=== PATIENT | female | born 1995 | race Caucasian/White ===

== ENCOUNTER 2016-12-14 22:44 | Emergency (ER) | payer OTHER ==
[2016-12-15 02:14] VITALS: BP 141/91
[2016-12-15] MEDS ORDERED: BENADRYL IM ONE (02:24)
[2016-12-15] MEDS ORDERED: COMPAZINE IM ONE (02:24)
[2016-12-15] MEDS ORDERED: PHENERGAN IM ONE (02:26)
--- NOTE | 2016-12-15 02:30 | PROVIDER DOCUMENTATION ---
HPI-Headache - General Chief Complaint: Headache Stated Complaint: V/N,HEADACHE Time Seen by Provider: 12/15/16 02:20 Source: patient Allergies/Adverse Reactions: Patient Allergies Allergy/AdvReac Type Severity Reaction Status Date / Time benztropine mesylate * Allergy Severe ANAPHYLAXIS Verified 11/24/16 22:50 [From Cogentin] ketorolac tromethamine * Allergy Severe ANAPHYLAXIS Verified 11/24/16 22:50 [From Toradol] nalbuphine HCl * Allergy Severe SWELLING Verified 11/24/16 22:50 [From Nubain] iodine Allergy ANAPHYLAXIS Verified 11/24/16 22:50 meperidine HCl * Allergy Unknown Verified 11/24/16 22:50 [From Demerol] aripiprazole [From Abilify] AdvReac Unknown Verified 11/24/16 22:50 Home Medications: Home Medication List Medication Instructions Recorded Confirmed Last Taken Type Fentanyl 25 Microgm/Hr Patch 1 patch TD Q3DAYS 07/15/16 12/14/16 08/14/16 History [Duragesic 25 Microgm/Hr Patch] Butalb/Acetaminophen/Caffeine 1 each PO 2-4XDAY PRN PRN #30 07/19/16 12/14/16 Unknown Rx [Esgic 50-325-40 mg Tablet] tablet Ondansetron HCl [Zofran] 1 - 2 tab PO Q6H PRN PRN #15 tablet 07/19/16 12/14/16 08/16/16 Rx Promethazine [Phenergan] 25 mg KS Q6H PRN PRN #10 supp 10/27/16 12/14/16 Unknown Rx Alprazolam [Xanax] 1 mg PO BID 11/24/16 12/14/16 Unknown History - History of Present Illness-Headache Nature of Presenting Problem: 21 Y/O F presents to ED with Headache. Pt is a frequent visitor to the ED with c /o of photophobia and vomiting. Pt states that the onset was around 4hr but she Headache Location: reports: frontal Quality of Pain: reports: aching Severity: reports: moderate, severe Onset/Duration: reports: 4-6 hours ago Timing: reports: still present Headache Context: reports: nothing Headache History: reports: history of migraines Any recent trauma/injury?: reports: none Headache severity at the maximum: severe Preceding Symptoms: reports: visual disturbances Headache Exacerbated by:: reports: light Associated Symptoms: reports: headache, vomiting. denies: fever/chills Review of Systems - Adult - REVIEW OF SYSTEMS - ADULT Constitutional: denies: chills, fever Eyes: reports: no symptoms reported Ears, Nose, Mouth & Throat: reports: no symptoms reported Cardiovascular: reports: no symptoms reported Respiratory: reports: no symptoms reported Gastrointestinal: reports: vomiting Genitourinary: reports: no symptoms reported Musculoskeletal: reports: no symptoms reported Integumentary: reports: no symptoms reported Neurological: reports: headache/migraines Psychiatric: reports: no symptoms reported Endocrine: reports: no symptoms reported Hematologic/Lymphatic: reports: no symptoms reported Allergic/Immunologic: reports: no symptoms reported All Other Systems: Reviewed and Negative Past History - Adult - PAST MEDICAL HISTORY-ADULT Review of Records: reports: Old Records Reviewed, Nursing Assessment Review, Medications Reviewed, Social history reviewed & non-contributory. Major Childhood Illnesses: reports: denies history Cardiovascular: denies: cardiac disease, CHF Respiratory: denies: asthma, lung disease Gastrointestinal: reports: Crohn's Obstetrical/Gynecological: reports: denies history Genitourinary: reports: kidney stones Musculoskeletal: denies: arthritis, orthopedic injury Neurological: reports: Seizures/Epilepsy Psychiatric: reports: bipolar Endocrine/Immune: reports: hypoglycemia Other Conditions: reports: other cancer (colon) - PRIOR SURGERIES/PROCEDURES Surgical/Procedure History: reports: appendectomy, cholecystectomy, other ( colon resection) - PRIOR HOSPITALIZATIONS Prior Hospitalizations: reports: none - IMMUNIZATION STATUS Childhood Immunizations: UTD Flu Vaccine: See Nurse Assessment - FAMILY HISTORY Family History: reviewed, not pertinent - SOCIAL HISTORY Smoking: cigarettes, less than 1 pack/day Alcohol Use Frequency: occasionally Living Situation: family Physical Exam- Neurological - Physical Exam-Neuro Initial Vital Signs Reviewed: Yes General Appearance: alert, mild distress. negative: appears well Eye Exam: bilateral eye: normal inspection, PERRL, EOMI, photophobia HENMT: normocephalic/atraumatic, moist mucous membranes, normal ENT inspection, TMs normal, pharynx normal Head Injury: no evidence of injury Neck: non-tender, full range of motion, supple, normal inspection Respiratory: chest non-tender, lungs clear, normal breath sounds Cardiovascular: normal peripheral pulses, regular rate, rhythm Abdominal Exam: normal bowel sounds, non tender, soft Lymphatic: no adenopathy Extremity: normal range of motion, non-tender radiology physician Exam: normal hearing, normal speech, PERRL Coordination/Gait: normal finger to nose Motor/Sensory: no motor deficit, no sensory deficit, no pronator drift Neurologic: radiology physician II-XII nml as tested Integumentary: normal color, normal turgor, warm/dry Psych/Mental Status: normal mood/affect, normal thought content, normal thought process, oriented x 3 - Glascow Coma Scale Best Eye Response: (4) open spontaneously Best Verbal Response: (5) oriented Best Motor Response: (6) obeys commands Total Glascow Score: 15 Progress - PLAN OF CARE/RESULTS Progress/Plan/Lab Results: Orders Category Date Time Status Diphenhydramine [Benadryl] Med 12/15/16 02:24 Discontinued 25 mg IM NOW ONE Prochlorperazine [Compazine] Med 12/15/16 02:24 Discontinued 10 mg IM NOW ONE Promethazine [Phenergan] Med 12/15/16 02:26 Discontinued 25 mg IM NOW ONE Vital Signs - 24 hr 12/14/16 12/15/16 22:56 02:13 Temperature 98.5 F 98.2 F Pulse Rate 86 76 Respiratory 18 20 Rate Blood Pressure 143/99 141/91 O2 Sat by Pulse 100 96 Oximetry Departure - Departure Time of Disposition Order: 02:29 DIAGNOSIS: Headache Qualifiers: Headache type: unspecified Headache chronicity pattern: unspecified pattern Intractability: not intractable Qualified Code(s): R51 - Headache Disposition: HOME 01 Certified Medical Emergency: Emergent Condition: Stable Additional Instructions: ED Follow Up Instructions: You have been treated by a care provider in the Emergency Department. These instructions are being provided to you so you can have an understanding of how to care for yourself upon discharge. Upon discharge from the Emergency Department, you are responsible for making arrangements for follow-up care by a physician of your choice. Take all prescribed medications as directed. Return to the Emergency Department immediately for any new or worsening symptoms. You may call the Physician Referral phone number at [phone] to obtain a list of Physicians who are taking new patients. Referrals: Johan Caamra MD [Primary Care Provider] - Instructions: Migraine Headache, [id number] Attestation - Scribe Verification/Attestation Scribe:: Noni Kidd Acting as Scribe for:: Dieter Andujar Scribe documention review:: This chart was documented by a scribe and accurately reflects the service the provider performed and the decisions made by the provider.
== END 2016-12-15 02:49 | disposition home or self-care (01) ==
LOC: P.ED 22:44
DX: R51 Headache (principal); H53.149 Visual discomfort, unspecified; R11.10 Vomiting, unspecified; Z79.899 Other long term (current) drug therapy; Z87.442 Personal history of urinary calculi; Z85.038 Personal history of other malignant neoplasm of large intestine
CPT/HCPCS: J0780; J1200; J2550

== ENCOUNTER 2019-06-09 08:50 | Inpatient (IN) ==
[2019-06-09] MEDS ORDERED: TYLENOL PO PRN (10:11)
[2019-06-09] MEDS ORDERED: VENTOLIN HFA INH PRN (10:17)
--- NOTE | 2019-06-09 10:35 | Diag Imaging Result Doc PS360 ---
CHEST-2 VIEWS - 06/09/2019 INDICATION: GERD,FTT COMPARISON: 09/17/2018 FINDINGS: The lungs are normally expanded and clear. Heart size and mediastinal contours are normal. No pneumothorax or pleural effusion. There are cholecystectomy clips. IMPRESSION: Negative exam. Electronically signed by Chuy Lee 06/09/2019 10:33 AM
--- NOTE | 2019-06-09 10:59 | EKG Report ---
Test Performed on : 06/09/2019 10:52:07 AM Test Reason : FTT,Diarrhea,chron's dz. Blood Pressure : / mmHG Vent. Rate : 081 BPM Atrial Rate : 081 BPM P-R Int : 158 ms QRS Dur : 068 ms QT Int : 370 ms P-R-T Axes : 087 093 001 degrees QTc Int : 429 ms Normal sinus rhythm. Rightward axis Septal infarct , age undetermined ST & T wave abnormality, consider inferior ischemia ST & T wave abnormality, consider anterior ischemia Abnormal ECG When compared with ECG of 06-NOV-2017 22:07, T wave inversion now evident in Inferior leads T wave inversion now evident in Anterior leads Confirmed by Dion VICKERS, Gege Ray ([id number]) on 06/15/2019 8:33:52 AM
--- NOTE | 2019-06-09 11:18 | HISTORY AND PHYSICAL ---
PRIMARY CARE PHYSICIAN: Dr. Johan Camara. GASTROENTEROLOGY: Dr. Jax Posada. GENERAL SURGERY: Dr. Chin Long. CHIEF COMPLAINT: Direct admit from home at the request of Dr. Long. She had a PICC line for TPN and the PICC line was pulled about a month ago. She has Crohn disease and failure to thrive and is being admitted for evaluation for a feeding tube. HISTORY OF PRESENTING ILLNESS: This is a 23-year-old female who presents to [facility] as a direct admit from Home at the request of General Surgery, Dr. Long. She has a history of Crohn disease and had a PICC line for home TPN therapy and had a possible infection according to the patient, and they pulled her PICC line about a month ago. She has failure to thrive, currently weighs 78 pounds and 4 ounces, so she is being admitted for evaluation of a possible feeding tube at this time for further evaluation and treatment. PAST MEDICAL HISTORY: Crohn disease, PTSD, manic depression, GERD, multiple personality disorder, and diabetes type 2. PAST SURGICAL HISTORY: Colectomy, cholecystectomy, section, appendectomy, bilateral tubal ligation. FAMILY HISTORY: Kidney and cervical cancer. SOCIAL HISTORY: She currently lives with her . Smokes a half a pack of cigarettes a day and has done so since the age of 16. No alcohol. She uses marijuana daily and heroin occasionally to control her pain. ALLERGIES: Benztropine, Ketoralac, nalbuphine, iodine, meperidine, and aripiprazole. HOME MEDICATIONS: She takes Zofran 4 mg p.o. q.4 hours p.r.n. and that will be held, Ventolin inhaler 2 puff inhalation p.r.n., and Xanax 1 mg p.o. b.i.d. LABORATORY DATA: We will get a stat CBC, BMP, urinalysis, EKG and 2-view chest x-ray now and review those once they have resulted. REVIEW OF SYSTEMS: She denies any fever, chills, blurred vision, dizziness, chest pain, coughing, shortness of breath. She does have abdominal pain that is generalized, some mild nausea, diarrhea. Denied any constipation or burning or hurting with urination. PHYSICAL EXAMINATION: VITAL SIGNS: On arrival, she had a temperature of 98.6 degrees, pulse 84, respirations 16, blood pressure 121/86, saturating 100% on room air. GENERAL: She is noted to weigh 78 pounds and 4 ounces, is thin and cachectic in appearance. HEENT: Normocephalic, atraumatic. Normal ENT inspection. Oropharynx and nares are clear. Eyes, pupils are equal, round, and reactive to light and accommodation. Extraocular movements are intact. NECK: Normal inspection, normal range of motion. LUNGS: Clear to auscultation bilaterally with equal lung expansion and chest wall movement. HEART: Regular rate and rhythm. No murmurs, rubs, or gallops. ABDOMEN: Soft, nontender, nondistended. Bowel sounds are present x4 quadrants. MUSCULOSKELETAL: She has 5/5 strength x4 extremities. NEUROLOGICAL: The cranial nerves 2-12 appear grossly intact. ASSESSMENT: 1. Crohn disease. 2. Adult failure to thrive. 3. Gastroesophageal reflux disease. 4. Tobacco abuse. 5. Polysubstance drug abuse including marijuana and heroin. PLAN: She will be admitted to the medical unit, placed on telemetry, placed on a regular diet. Consult General Surgery. We are checking a CBC, BMP, urinalysis now along with a 2-view chest x- ray and an EKG. We will continue her home medications, place her on Zofran 4 mg IV q.4 hours p.r.n., Tylenol 650 p.o. q.6 hours p.r.n. Further orders after seen by attending and by field consultant. Patient seen and examined by me face to face, all the laboratory, vitals signs and images were reviewed, patient is a direct admit, surgery department will evaluate the possibility of placing a feeding tube on this patient since she has Crohn's disease and failure to thrive, she also had a previous colectomy, and also a history of drug abuse, Surgery will evaluate the patient, I agree with the rest of the IT SALES EXECUTIVE's assessment and plan, Diego Rivera MD Dictated by OH Zavala for Diego Vicente MD cc: OH Zavala MD Wayne E. Thomas, MD [facility] CENTERJuan Diego
[2019-06-09 11:55] LABS: BASO# 0.03 X1000 (0.0-0.2); BASO% 0.3 % (0.0-0.8); EOS# 0.14 X1000 (0.0-0.7); EOS% 1.3 % (0.0-10.0); HEMATOCRIT 26.1 % (37.0-47.0); IMM GRAN# 0.58 X1000 (0.0-0.04); IMM GRAN% 5.4 % (0.0-0.5); LYMPH# 3.11 X1000 (1.2-3.4); LYMPH% 29.1 % (20.5-51.1); MCH 19.9 PG (27-31); MCHC 30.7 g/dL (33-37); MCV 64.8 FL (81-99); MONO% 11.2 % (1.7-9.3); MPV 8.5 FL (7.4-10.4); NEUT# 5.62 X1000 (1.4-6.5); NEUT% 52.7 % (42.2-75.2); PLT 641 X1000 (130-400); RBC 4.03 XMIL (4.2-5.4); RDW 18.1 % (11.5-14.5); WBC 10.68 X1000 (4.8-10.8)
[2019-06-09 12:09] LABS: AGAP 12; BUN 8 mg/dL (8-22); CALCIUM 8.8 mg/dL (8.8-10.2); CHLORIDE 95 mmol/L (98-107); COSMO 264; CREATININE 0.5 mg/dL (0.5-0.9); ESTIMATED GFR > 60; GLUCOSE 89 mg/dL (70-104); POTASSIUM 2.9 mmol/L (3.5-5.1); SODIUM 133 mmol/L (136-145); TCO2 26 mmol/L (25-35)
[2019-06-09 12:17] LABS: BANDS 4 % (0-1); EOS 2 % (1-10); LYMPHS 26 % (21-51); MONO 4 % (1-9); SEGS 58 % (42-75)
[2019-06-09 12:18] LABS: ANISOCYTOSIS 1+; HYPOCHROM 2+
[2019-06-09] MEDS ORDERED: XANAX PO SCH ×2 (12:49→21:00)
[2019-06-09 13:05] LABS: URINE SOURCE CLEAN CATCH
[2019-06-09 13:14] LABS: BILIRUBIN URINE NEGATIVE (NEGATIVE); BLOOD URINE NEGATIVE (NEGATIVE); COLOR YELLOW; GLUCOSE URINE NEGATIVE (NEGATIVE); KETONE URINE NEGATIVE (NEGATIVE); LEUKOCYTES URINE MODERATE (NEGATIVE); NITRITE URINE NEGATIVE (NEGATIVE); PH URINE 6.5; PROTEIN URINE 30 mg/dL (NEGATIVE); SP GRAVITY URINE 1.018; TURBIDITY URINE HAZY (CLEAR); UR EPITHELIAL CELLS >10 /HPF (<10); URINE BACTERIA 2+ /HPF; URINE RBC <10 /HPF (<10); URINE WBC TNTC /HPF (<10); UROBILINOGEN URINE NORMAL (NORMAL)
[2019-06-09] MEDS: ZOFRAN IV PRN (13:38)
[2019-06-09] MEDS: MORPHINE IV PRN ×2 (14:43→22:02)
[2019-06-09 15:13] LABS: UR AMPHETAMINES QUAL NONE DETECTED (NONE DETECT); UR BARBITUATES QUAL NONE DETECTED (NONE DETECT); UR BENZODIAZEPIN QUAL PRESUMPTIVE POSITIVE (NONE DETECT); UR CANNABINOIDS QUAL PRESUMPTIVE POSITIVE (NONE DETECT); UR COCAINE QUAL NONE DETECTED (NONE DETECT); UR METHADONE QUAL NONE DETECTED (NONE DETECT); UR OPIATES QUAL PRESUMPTIVE POSITIVE (NONE DETECT); UR OXYCODONE QUAL NONE DETECTED (NONE DETECT); UR PCP QUAL NONE DETECTED (NONE DETECT)
[2019-06-09] MEDS: XANAX PO SCH (18:46)
[2019-06-10] MEDS: MORPHINE IV PRN ×2 (05:29→10:37)
[2019-06-10] MEDS: ZOFRAN IV PRN ×2 (05:30→10:37)
[2019-06-10 06:34] LABS: BASO# 0.04 X1000 (0.0-0.2); BASO% 0.3 % (0.0-0.8); EOS% 0.8 % (0.0-10.0); HEMOGLOBIN 8.6 g/dL (12.0-16.0); IMM GRAN# 0.59 X1000 (0.0-0.04); IMM GRAN% 4.6 % (0.0-0.5); LYMPH# 1.71 X1000 (1.2-3.4); LYMPH% 13.4 % (20.5-51.1); MCH 19.8 PG (27-31); MCHC 30.7 g/dL (33-37); MCV 64.4 FL (81-99); MONO% 9.4 % (1.7-9.3); MPV 8.9 FL (7.4-10.4); NEUT# 9.11 X1000 (1.4-6.5); NEUT% 71.5 % (42.2-75.2); PLT 684 X1000 (130-400); RBC 4.35 XMIL (4.2-5.4); RDW 18.7 % (11.5-14.5); WBC 12.75 X1000 (4.8-10.8)
[2019-06-10 06:45] LABS: AGAP 10; ALB/GLOB RATIO 0.6; ALBUMIN 2.7 g/dL (3.5-5.0); ALKALINE PHOSPHATASE 85 U/L (32-104); BUN 7 mg/dL (8-22); CALCIUM 8.1 mg/dL (8.8-10.2); CHLORIDE 94 mmol/L (98-107); COSMO 264; CREATININE 0.7 mg/dL (0.5-0.9); ESTIMATED GFR > 60; GLUCOSE 92 mg/dL (70-104); GOT 15 U/L (10-30); GPT 10 U/L (10-36); IRON SATURATION 4 %; MAGNESIUM 1.8 mg/dL (1.5-2.7); POTASSIUM 3.4 mmol/L (3.5-5.1); SODIUM 133 mmol/L (136-145); TCO2 29 mmol/L (25-35); TIBC 248 ug/dL; TOTAL BILIRUBIN 0.18 mg/dL (0.20-1.00); TOTAL IRON 11 ug/dL (49-151); UNBOUND IRON 237 ug/dL (112-346)
[2019-06-10 07:15] LABS: FERRITIN 77 ng/mL (13-150)
[2019-06-10 07:34] LABS: BANDS 4 % (0-1); LYMPHS 17 % (21-51); MONO 6 % (1-9); SEGS 73 % (42-75)
--- NOTE | 2019-06-10 07:47 | GENERAL SURGERY PROGRESS NOTE ---
DATE: 06/10/2019 SUBJECTIVE: Patient doing about the same. OBJECTIVE: Vital Signs: Patient is currently afebrile. Her vital signs are stable. General: No acute distress. Resting on the hospital couch and not the hospital bed. HEENT: Normocephalic, atraumatic. Pupils equal, round, reactive to light. Mucous membranes moist. Oropharynx benign. Neck: Supple. Trachea midline. Cardiovascular: Regular rate and rhythm. Lungs: Grossly clear. Abdomen: Soft, nontender, nondistended. Extremities: Moves all extremities. Neurologic: Grossly intact. Skin: No signs of jaundice. Vascular: All extremities perfused. LABORATORY: Reviewed. White blood cell count slightly elevated at 12 this morning. Remainder of labs reviewed. Her albumin is 2.7. ASSESSMENT/PLAN: A 23-year-old female with severe protein malnutrition, Crohn disease. Severe protein malnutrition. At this time, she likely needs some kind of feeding conduit for further feeding. I discussed her case with Dr. Long, who has taking charge. We will get a CT scan today, mainly to see where her stomach is in relationship to her abdominal wall to see if a PEG tube is feasible on Wednesday, but otherwise continue current treatment and monitoring. cc: Kareem Jones MD
[2019-06-10] MEDS: XANAX PO SCH ×2 (08:29→12:10)
[2019-06-10] MEDS ORDERED: VENOFER 200 MG in NS 150 ML IV SCH (10:15)
[2019-06-10] MEDS ORDERED: FOLIC ACID 1 MG in NS 50 ML IV SCH (10:15)
[2019-06-10] MEDS ORDERED: POTASSIUM PHOSPHATE 20 MMOL in NS 250 ML IV ONE (10:45)
[2019-06-10] MEDS ORDERED: SODIUM CHLORIDE 0.9% INJ SCH (11:00)
[2019-06-10] MEDS ORDERED: PEPCID IV SCH (11:00)
[2019-06-10 11:19] VITALS: BP 124/102
--- NOTE | 2019-06-10 11:41 | PROGRESS NOTE ---
DATE: 06/10/2019 SUBJECTIVE: This patient is lying comfortably in bed. She does have generalized weakness and some abdominal discomfort. She seems to be tolerating p.o. She has iron deficiency anemia and borderline low folic acid deficiency, which I will replace both. She has hypokalemia and hypophosphatemia; I will replace it. OBJECTIVE: Vital Signs: Temperature 98.3 degrees, pulse 93, respiratory rate 12, blood pressure 142/99, oxygen saturation 95% on room air. HEENT: Head normocephalic, no trauma. PERRLA. Neck: Supple. No JVD. No masses. Central trachea. Chest: Clear to auscultation. No wheezing. No rales. Abdomen: Soft. Multiple abdominal scars. Some tenderness to palpation around the periumbilical area. Extremities: No edema, no clubbing, no cyanosis. Decreased muscle mass. Neurological examination: The patient is sleepy, but arousable. Oriented x3. She follows commands. Generalized weakness. LABORATORY: WBC 12.7, hemoglobin 8.6, hematocrit 28, platelets 684. Sodium 133, potassium 3.4, chloride 94, bicarbonate 29. BUN 7, creatinine 0.7, glucose 92, calcium 8.2, phosphorus 2. Iron 11, ferritin level 77 and folic acid level 10.2. ASSESSMENT AND PLAN: 1. Severe protein calorie malnutrition due to Crohn disease. At this point, Surgery has evaluated this patient and probably they will put a feeding tube at some point. CT scan of the abdomen has been requested. Surgery Department on board and following this patient closely. 2. Adult failure to thrive as above. I will continue with the same diet. I will replace the iron and folic acid. 3. Iron deficiency anemia and folic acid deficiency. I will replace both intravenously. 4. Tobacco abuse. This patient has been highly advised against tobacco use. I will continue with daily cessation education. 5. Polysubstance drug abuse, including marijuana and heroin. I will continue with daily cessation education as well. 6. Gastroesophageal reflux disease. I will start this patient on Pepcid. cc: Diego Vicente MD
--- NOTE | 2019-06-10 18:00 | DISCHARGE SUMMARY ---
ADMISSION DATE: 06/09/2019 DISCHARGE DATE: 06/10/2019 DISCHARGE DIAGNOSES: 1. Severe protein calorie malnutrition due to Crohn disease. 2. Adult failure to thrive. 3. Iron deficiency anemia. 4. Folic acid deficiency. 5. Tobacco abuse. 6. Polysubstance abuse. 7. Gastroesophageal reflux disease. HOSPITAL COURSE: This is a 23-year-old female who presented to [facility] as a direct admit from home at the request of General Surgery, Dr. Long. She has a history of Crohn disease and previous surgery, I believe partial colectomy: She had a PICC line for home TPN therapy and had a possible infection according to the patient, and they pulled her PICC line about a month ago. She has failure to thrive. Currently weight is 78 pounds and 4 ounces, and she was admitted for evaluation for possible feeding tube placement. She had been placed on the medical floor. She was placed on a diet, which actually she was tolerating a little bit. She was complaining of generalized discomfort and weakness. I checked the anemia workup, and she has iron- deficiency anemia and also borderline low folic acid deficiency that I was planning to replace, also hypokalemia and hypophosphatemia. The patient has decided to leave [facility]. She already signed all the paperwork. cc: Diego Vicente MD
== END 2019-06-10 14:35 | disposition left against medical advice (07) | DRG 641 ==
LOC: DIRADM 08:50 → SUATTDRO 08:50 → 4N 09:16
PROVIDERS: ATTEND Internal Medicine

== ENCOUNTER 2019-07-21 06:29 | Inpatient (IN) ==
[2019-07-21] MEDS ORDERED: D5 LR 1,000 ML IV ONE ×2 (06:40→07:06)
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
[2019-07-21 07:07] LABS: ESTIMATED GFR > 60
[2019-07-21 07:10] LABS: AGAP 14; ALKALINE PHOSPHATASE 68 U/L (32-104); BUN 24 mg/dL (8-22); CALCIUM 8.2 mg/dL (8.8-10.2); CHLORIDE 84 mmol/L (98-107); COSMO 262; CREATININE 0.5 mg/dL (0.5-0.9); GLUCOSE 89 mg/dL (70-104); GOT 15 U/L (10-30); GPT 13 U/L (10-36); POTASSIUM 3.8 mmol/L (3.5-5.1); SODIUM 129 mmol/L (136-145); TCO2 31 mmol/L (25-35); TOTAL PROTEIN 6.2 g/dL (6.3-8.3)
[2019-07-21 07:11] LABS: BASO# 0.01 X1000 (0.0-0.2); BASO% 0.1 % (0.0-0.8); EOS# 0.05 X1000 (0.0-0.7); EOS% 0.5 % (0.0-10.0); HEMATOCRIT 25.9 % (37.0-47.0); HEMOGLOBIN 7.9 g/dL (12.0-16.0); IMM GRAN# 0.16 X1000 (0.0-0.04); IMM GRAN% 1.8 % (0.0-0.5); LYMPH# 1.48 X1000 (1.2-3.4); LYMPH% 16.2 % (20.5-51.1); MCHC 30.5 g/dL (33-37); MCV 65.6 FL (81-99); MONO# 0.54 X1000 (0.11-0.59); MONO% 5.9 % (1.7-9.3); MPV 9.7 FL (7.4-10.4); NEUT# 6.88 X1000 (1.4-6.5); NEUT% 75.5 % (42.2-75.2); PLT 440 X1000 (130-400); RBC 3.95 XMIL (4.2-5.4); RDW 21.6 % (11.5-14.5); WBC 9.12 X1000 (4.8-10.8)
[2019-07-21 07:15] LABS: BE 14.3 mmoll (-3.0-3.0); BLOOD TYPE ARTERIAL; HCO3-(ACT) 36.1 mmoll (20.0-26.0); METHB 0.7 % (0.0-1.5); O2HB 94.7 % (95.0-99.0); PCO2(98.6) 46 mmHg (35-45); PO2(98.6) 81 mmHg (60-100); SAMPLE BLOOD; THB 8.2 g/dL (11.5-17.4); pH(98.6) 7.53 (7.35-7.45)
[2019-07-21 07:17] LABS: MODALITY ROOM AIR
[2019-07-21 07:18] LABS: ALLEN TEST YES
--- NOTE | 2019-07-21 07:30 | Diag Imaging Result Doc PS360 ---
EXAM: CHEST-PORTABLE HISTORY: weak TECHNIQUE: Portable chest COMPARISON: 06/09/2019 FINDINGS: The lungs are well expanded. The heart is not enlarged. The vessels are not distended. There are no infiltrates. No effusion identified. IMPRESSION: Negative exam. Electronically signed by Enrico Hylton 07/21/2019 7:27 AM
--- NOTE | 2019-07-21 08:34 | EKG Report ---
Test Performed on : 07/21/2019 08:16:43 AM Test Reason : weak Blood Pressure : / mmHG Vent. Rate : 107 BPM Atrial Rate : 107 BPM P-R Int : 144 ms QRS Dur : 078 ms QT Int : 366 ms P-R-T Axes : 088 094 257 degrees QTc Int : 488 ms Sinus tachycardia. Rightward axis ST & T wave abnormality, consider inferolateral ischemia Abnormal ECG When compared with ECG of 09-JUN-2019 10:52, QT has lengthened Unconfirmed Result
--- NOTE | 2019-07-21 10:43 | PROGRESS NOTE ---
DATE: 07/21/2019 SUBJECTIVE: The patient is a Crohn patient with history of severe malnutrition. When she was here she was admitted by Dr. Long in May for tube placement because she had severe failure to thrive. Unfortunately she left AMA before she could get tube place. She has been tolerating a diet. She does not throw up, but in any case she is just not meeting her caloric intake and she did want to stay. Now she is even more cachectic. Weight is down in the 70s. Her electrolytes reveal sodium 129. She was extremely scaphoid stomach. She has bitemporal wasting with prominent eye sockets. She looks just terribly ill. She is also a bit dehydrated based on her labs, hyponatremic probably due to just poor nutrition, and she has got profound muscle wasting. So plan will be to admit her. She will need hyperalimentation, feeding tube placement. I will consult Dr. Long who is recommending GI evaluation for PEG placement and I am going to put her on TPN. We will have to watch very closely for refeeding syndrome as she is profoundly malnourished. We will continue to follow closely. cc: MD Chin Dockery MD
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
[2019-07-21] MEDS ORDERED: SODIUM CHLORIDE 0.9% INJ SCH (11:50)
[2019-07-21] MEDS ORDERED: PROTONIX IV SCH (11:50)
[2019-07-21] MEDS ORDERED: ZOFRAN IV PRN (11:50)
[2019-07-21] MEDS ORDERED: TYLENOL PO PRN (11:50)
--- NOTE | 2019-07-21 11:58 | ED EKG INTERP ---
This chart was entered by Martina Meza Scribe, acting as scribe for Dieter Andujar MD. EKG Interpretation - EKG Time of EKG reading by physician:: 08:16 EKG Read and Signed by:: Dieter Andujar EKG Interpretation (*Must complete 3 of following elements*): Abnormal Rate: 107 Rhythm: ST [place]: right QRS: normal [place] Interval: normal ST Wave: non-specific ST changes (ST & T wave abnormality, consider inferolateral ischemia) Attestation - Physician/ SHELBIE Attestation Patient care was provided by Advanced Practice Provider:: No The physician spent face to face time with patient:: Yes Advanced Practice Provider documentation review:: Supervising physician onsite and consulted in the evaluation and care of this patient. The physician did have a face to face encounter with the patient. This chart was documented by the indicated scribe, (Martina Meza Scribe) and accurately reflects the services I performed and decisions made by me, Dieter Andujar MD, as attested by the provider's signature.
[2019-07-21] MEDS ORDERED: NS 250 ML ONE ×2 (12:45→16:27)
[2019-07-21] MEDS: NORCO-7.5 PO PRN (13:33)
--- NOTE | 2019-07-21 14:06 | Diag Imaging Result Doc PS360 ---
CT ABD/PELVIS W/IV CONT ONLY - 07/21/2019 INDICATION: malnutrition COMPARISON: 12/14/2018 FINDINGS: The lung bases are grossly clear and the heart size is normal. There is severe cachexia. There are cholecystectomy clips stable from prior. Otherwise all abdominal organs are normal. There is some gastric wall thickening with enhancement suggesting gastritis. No constipation. No other bowel obstruction or inflammation. Urinary bladder, uterus, and rectum are normal. Bones are intact and normally mineralized. IMPRESSION: 1. Possible gastritis. 2. Severe cachexia. This exam was performed using automated exposure control, adjustment of mA or kV according to patient size, and/or use of iterative reconstruction technique Electronically signed by Chuy Lee 07/21/2019 2:03 PM
[2019-07-21] MEDS ORDERED: CLINIMIX E 4.25%-5% SOLUTION 1,000 ML IV SCH (14:45)
[2019-07-21 16:11] LABS: INR 1.19; PROTIME 15.3 Seconds (11.0-16.0)
[2019-07-21] MEDS: LEVAQUIN 500 MG/D5W 500 MG/100 ML IVPB IV SCH ×2 (16:32→17:49)
[2019-07-21] MEDS: FLAGYL 500 MG/NS 500 MG/100 ML IVPB IV SCH ×3 (16:32→23:33)
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
[2019-07-21 16:55] LABS: URINE SOURCE CATH
[2019-07-21 16:58] LABS: BILIRUBIN URINE SMALL (NEGATIVE); BLOOD URINE SMALL (NEGATIVE); COLOR ORANGE; GLUCOSE URINE NEGATIVE (NEGATIVE); KETONE URINE NEGATIVE (NEGATIVE); LEUKOCYTES URINE LARGE (NEGATIVE); NITRITE URINE NEGATIVE (NEGATIVE); PROTEIN URINE 50 mg/dL (NEGATIVE); SP GRAVITY URINE 1.043; TURBIDITY URINE HAZY (CLEAR); UROBILINOGEN URINE NORMAL (NORMAL)
[2019-07-21 17:08] LABS: UR AMPHETAMINES QUAL NONE DETECTED (NONE DETECT); UR BARBITUATES QUAL NONE DETECTED (NONE DETECT); UR BENZODIAZEPIN QUAL PRESUMPTIVE POSITIVE (NONE DETECT); UR CANNABINOIDS QUAL PRESUMPTIVE POSITIVE (NONE DETECT); UR COCAINE QUAL NONE DETECTED (NONE DETECT); UR EPITHELIAL CELLS <10 /HPF (<10); UR METHADONE QUAL NONE DETECTED (NONE DETECT); UR OPIATES QUAL PRESUMPTIVE POSITIVE (NONE DETECT); UR OXYCODONE QUAL NONE DETECTED (NONE DETECT); UR PCP QUAL NONE DETECTED (NONE DETECT); URINE BACTERIA 1+ /HPF; URINE RBC 20-40 /HPF (<10); URINE WBC TNTC /HPF (<10)
[2019-07-21 17:15] LABS: URINE CASTS GRANULAR PRESENT; URINE CRYSTALS NONE SEEN; URINE SMALL ROUND CELLS NONE SEEN; URINE YEAST PRESENT
[2019-07-21] MEDS: MORPHINE IV PRN ×3 (17:25→23:32)
[2019-07-21] MEDS ORDERED: LIPOSYN 20% 250 ML IV SCH (18:00)
[2019-07-21] MEDS ORDERED: TPN ELECTROLYTES 20 ML, MAGNESIUM SULFATE 5 MEQ, POTASSIUM CHLORIDE 30 MEQ, SODIUM PHOS... IV SCH ×8 (18:00)
[2019-07-21] MEDS ORDERED: D10W 1,000 ML IV PRN (18:00)
[2019-07-21 20:21] LABS: HIV ANTIBODY SCREEN SEE COMMENTS
[2019-07-21] MEDS: REMERON SOLTAB PO SCH ×2 (20:37→22:55)
[2019-07-22] MEDS: NORCO-7.5 PO PRN (01:19)
[2019-07-22] MEDS: MORPHINE IV PRN ×3 (02:33→08:37)
[2019-07-22] MEDS: FLAGYL 500 MG/NS 500 MG/100 ML IVPB IV SCH (05:34)
[2019-07-22] MEDS ORDERED: LOVENOX SUBQ SCH (06:00)
[2019-07-22 06:22] LABS: EOS# 0.01 X1000 (0.0-0.7); EOS% 0.2 % (0.0-10.0); HEMOGLOBIN 6.4 g/dL (12.0-16.0); IMM GRAN# 0.07 X1000 (0.0-0.04); IMM GRAN% 1.3 % (0.0-0.5); LYMPH# 0.78 X1000 (1.2-3.4); LYMPH% 14.8 % (20.5-51.1); MCH 20.2 PG (27-31); MCHC 30.5 g/dL (33-37); MCV 66.2 FL (81-99); MONO# 0.33 X1000 (0.11-0.59); MONO% 6.3 % (1.7-9.3); MPV 9.7 FL (7.4-10.4); NEUT# 4.08 X1000 (1.4-6.5); NEUT% 77.4 % (42.2-75.2); PLT 287 X1000 (130-400); RBC 3.17 XMIL (4.2-5.4); RDW 21.6 % (11.5-14.5); WBC 5.27 X1000 (4.8-10.8)
[2019-07-22 06:55] LABS: AGAP 9; BUN 16 mg/dL (8-22); CALCIUM 7.4 mg/dL (8.8-10.2); CHLORIDE 84 mmol/L (98-107); CHOLESTEROL 48 mg/dL (0-200); COSMO 252; CREATININE 0.4 mg/dL (0.5-0.9); ESTIMATED GFR > 60; GLUCOSE 117 mg/dL (70-104); GOT 16 U/L (10-30); POTASSIUM 3.2 mmol/L (3.5-5.1); PREALBUMIN < 3.0 mg/dL (20-40); SODIUM 124 mmol/L (136-145); TCO2 31 mmol/L (25-35); TRIGLYCERIDES 53 mg/dL (35-135)
[2019-07-22 06:57] LABS: FREE T4 0.91 ng/dL (0.93-1.70); TSH 0.7 uIUmL (0.27-4.20)
[2019-07-22 06:59] LABS: BANDS 18 % (0-1); LYMPHS 10 % (21-51); MONO 4 % (1-9); SEGS 68 % (42-75)
[2019-07-22 07:00] LABS: ANISOCYTOSIS 1+; HYPOCHROM 2+; MICROCYTOSIS 3+
[2019-07-22 07:55] LABS: MAGNESIUM 1.8 mg/dL (1.5-2.7)
[2019-07-22 08:17] VITALS: BP 120/91
--- NOTE | 2019-07-22 14:15 | DISCHARGE SUMMARY ---
ADMISSION DATE: 07/21/2019 DISCHARGE DATE: 07/22/2019 DATE OF DISCHARGE: 07/22/2019, against medical advice. HOSPITAL COURSE: The patient with long history of malnutrition, which was thought to be related to her Crohn's disease and bowel resections. She has had a previous admission where a feeding tube placement was discussed, but she left AMA prior to that happening. She came back because she felt she was not getting better. She has continued to lose weight. The patient was profoundly cachectic with a BMI of 12. Plans were made to start TPN with possible feeding tubes to follow, but on the day after admission, the patient elected to leave AMA. I personally discussed with the patient that given her profoundly malnourished state, continued weight loss as well as significant anemia and worsening electrolyte abnormalities which could be indicative of early refeeding syndrome there was a significant chance of without continued treatment. The patient expressed understanding. Her parents who were on the phone with her at the time of our discussion came and picked her up. DISCHARGE DIAGNOSES: 1. Severe protein calorie malnutrition. 2. Medical noncompliance. 3. Anemia. 4. Hyponatremia. 5. Hypokalemia. 6. Hypophosphatemia. 7. Crohn's disease. DISCHARGE MEDICATIONS: The patient left AMA. FOLLOWUP: Patient left AMA. TIME SPENT: Greater than 30 minutes were spent counseling patient.
== END 2019-07-22 10:08 | disposition left against medical advice (07) | DRG 641 ==
LOC: P.ED 06:29 → 3N 10:55 → SUATTDRO 10:55
PROVIDERS: ATTEND Internal Medicine

== ENCOUNTER 2019-07-30 11:14 | Inpatient (IN) ==
[2019-07-30] MEDS ORDERED: NS 1,000 ML IV ONE ×2 (12:02→14:19)
[2019-07-30 12:28] LABS: BASO# 0.01 X1000 (0.0-0.2); BASO% 0.1 % (0.0-0.8); EOS# 0.01 X1000 (0.0-0.7); EOS% 0.1 % (0.0-10.0); HEMATOCRIT 24.1 % (37.0-47.0); HEMOGLOBIN 7.4 g/dL (12.0-16.0); IMM GRAN# 0.04 X1000 (0.0-0.04); IMM GRAN% 0.5 % (0.0-0.5); LYMPH# 1.29 X1000 (1.2-3.4); LYMPH% 15.6 % (20.5-51.1); MCH 20.7 PG (27-31); MCHC 30.7 g/dL (33-37); MCV 67.3 FL (81-99); MONO# 0.44 X1000 (0.11-0.59); MONO% 5.3 % (1.7-9.3); NEUT# 6.46 X1000 (1.4-6.5); NEUT% 78.4 % (42.2-75.2); PLT 566 X1000 (130-400); RBC 3.58 XMIL (4.2-5.4); RDW 23.2 % (11.5-14.5); WBC 8.25 X1000 (4.8-10.8)
[2019-07-30 12:36] LABS: AGAP 12; ALB/GLOB RATIO 0.5; ALBUMIN 2.1 g/dL (3.5-5.0); ALKALINE PHOSPHATASE 83 U/L (32-104); BUN 17 mg/dL (8-22); CALCIUM 7.8 mg/dL (8.8-10.2); CHLORIDE 90 mmol/L (98-107); COSMO 262; CREATININE 0.5 mg/dL (0.5-0.9); ESTIMATED GFR > 60; GLUCOSE 95 mg/dL (70-104); GOT 18 U/L (10-30); GPT 32 U/L (10-36); POTASSIUM 2.9 mmol/L (3.5-5.1); SODIUM 130 mmol/L (136-145); TCO2 28 mmol/L (25-35); TOTAL BILIRUBIN 0.26 mg/dL (0.20-1.00)
--- NOTE | 2019-07-30 12:47 | Diag Imaging Result Doc PS360 ---
EXAM: FLAT/UPRIGHT ABD/1 VIEW CHEST - 07/30/2019 HISTORY: abdominal pain TECHNIQUE: Portable supine and upright abdomen one view chest COMPARISON: 07/21/2019 portable chest, 07/21/2019 CT abdomen/pelvis FINDINGS: There is gaseous distention of the stomach and duodenum. There are similar distention of the stomach and duodenum with fluid on the prior CT. There is no substantial gaseous distention of the more distal small bowel. There is gas visible in mostly nondistended colon. There is no free air identified. There are surgical clips at the right upper quadrant. Upright chest shows normal heart size. The lungs appear clear. There is no pleural effusion or pneumothorax identified. IMPRESSION: Nonspecific gaseous distention of stomach and duodenum. Correlation with clinical evaluation is recommended. No evidence of acute cardiopulmonary disease. Electronically signed by Neto Cox 07/30/2019 12:45 PM
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
[2019-07-30 13:54] LABS: INR 1.03; PROTIME 13.6 Seconds (11.0-16.0)
[2019-07-30 13:55] LABS: PTT 38.5 Seconds (22.3-41.8)
[2019-07-30] MEDS ORDERED: MORPHINE IV ONE (14:02)
[2019-07-30] MEDS ORDERED: POTASSIUM CHLORIDE 20% LIQUID PO ONE (14:56)
[2019-07-30] MEDS ORDERED: CALMOSEPTINE OINTMENT TOP PRN (15:54)
[2019-07-30] MEDS: MORPHINE IV PRN ×2 (16:29→22:22)
[2019-07-30] MEDS ORDERED: M.V.I.-12 10 ML, FOLIC ACID 1 MG, MAGNESIUM SULFATE 1 GM, THIAMINE 100 MG in NS 1,000 ML IV ONE (16:38)
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
[2019-07-30] MEDS: FLAGYL 500 MG/NS 500 MG/100 ML IVPB IV SCH (17:01)
[2019-07-30] MEDS: PROTONIX IV SCH (17:06)
[2019-07-30] MEDS: LEVAQUIN 500 MG/D5W 500 MG/100 ML IVPB IV SCH (19:35)
[2019-07-30] MEDS: NORCO-5 PO PRN (19:35)
[2019-07-30] MEDS: CLINIMIX E 4.25%-5% SOLUTION 1,000 ML IV SCH (19:36)
[2019-07-30] MEDS: XANAX PO PRN (20:39)
[2019-07-30] MEDS: NS 1,000 ML IV SCH (20:45)
[2019-07-31] MEDS: FLAGYL 500 MG/NS 500 MG/100 ML IVPB IV SCH ×3 (01:58→15:00)
[2019-07-31] MEDS: MORPHINE IV PRN ×3 (04:48→17:25)
[2019-07-31] MEDS: CLINIMIX E 4.25%-5% SOLUTION 1,000 ML IV SCH ×2 (04:48→11:48)
[2019-07-31] MEDS: XANAX PO PRN (04:48)
[2019-07-31] MEDS ORDERED: ATIVAN IV PRN (07:24)
[2019-07-31] MEDS ORDERED: NS 250 ML ONE (08:32)
[2019-07-31] MEDS: ATIVAN PO PRN ×3 (08:32→18:08)
[2019-07-31] MEDS: NORCO-5 PO PRN (08:32)
[2019-07-31] MEDS: PERCOCET-5 PO PRN ×3 (12:25→20:01)
[2019-07-31] MEDS ORDERED: D10W 1,000 ML IV SCH (13:15)
--- NOTE | 2019-07-31 13:27 | PROGRESS NOTE ---
DATE: 07/31/2019 INTERVAL HISTORY: The patient is still reporting lower abdominal pain and pain associated with her decubitus ulcer. She is denying further bloody bowel movements. No other complaints. No acute events overnight. REVIEW OF SYSTEMS: Twelve point review of systems negative except as per interval history. LABS: For today still pending. VITALS: T-max 98.2 degrees, pulse 86, respirations 19, blood pressure 107/84. O2 saturation 100% on room air. PHYSICAL EXAMINATION: General: No acute distress. Markedly cachectic, chronically ill appearing. Vitals: As above. HEENT: Atraumatic. Moist mucous membranes. Cardiovascular: Regular rate and rhythm. Pulmonary: Clear to auscultation bilaterally. No wheezing noted. Abdomen: Soft, nontender, nondistended. Bowel sounds are somewhat positive. Extremities: Peripheral pulses intact. No clubbing, cyanosis. Neurologic: Globally quite weak but no focal deficits identified. Cranial nerves intact. Psychiatric: Asleep but easily arousable. Oriented x3. Cooperative. ASSESSMENT AND PLAN: 1. Severe protein calorie malnutrition. This has been an ongoing problem for the patient. She is tolerating diet fairly well this morning. Her family actually broader Guillermo's which she did eat and has had no issues with nausea or vomiting. Given severe malnutrition. We are going to go ahead and get total parenteral nutrition started on her if we can. Patient not expressing a desire to leave against medical advice currently, but has done so multiple times in the past. 2. Crohn's disease with possible flare. Patient on admission reported lower abdominal pain and bloody bowel movements. Still reporting pain but no further blood. Gastroenterology consulted and further recommendations pending. Currently on antibiotics with Levaquin and Flagyl. 3. Hypokalemia. Repleted yesterday. Recheck pending. 4. Folate deficiency, continue repleting. 5. Iron deficiency. We will hold off on oral iron for now as it looks like esophagogastroduodenoscopy may be planning endoscopy. After that we will plan on restarting oral iron. 6. Anemia, multifactorial with both iron and folate deficiency as well as possibly some gastrointestinal blood loss. Blood counts on admission approximately stable from last time. Recheck this morning pending. 7. Decubitus ulcers. Does not appear infected, likely related to nutritional status. Monitor. addendum: repeat cbc with significant drop in H/H. will transfuse 2 units and monitor. multiple electrolytes deficienc including potassium, phosphorus, and calcium. repleting those and monitoring. MTDD
[2019-07-31] MEDS: PROTONIX IV SCH (14:53)
[2019-07-31] MEDS ORDERED: TPN ELECTROLYTES 20 ML, MAGNESIUM SULFATE 5 MEQ, POTASSIUM CHLORIDE 30 MEQ, M.V.I.-12 1... IV SCH ×8 (15:00)
[2019-07-31] MEDS: MIRALAX PO SCH ×2 (15:07→23:16)
[2019-07-31 15:53] LABS: FREE T4 0.91 ng/dL (0.93-1.70); TSH 2.79 uIUmL (0.27-4.20)
[2019-07-31 15:54] LABS: EOS# 0.01 X1000 (0.0-0.7); EOS% 0.2 % (0.0-10.0); HEMATOCRIT 20.1 % (37.0-47.0); IMM GRAN# 0.03 X1000 (0.0-0.04); IMM GRAN% 0.5 % (0.0-0.5); LYMPH# 1.24 X1000 (1.2-3.4); LYMPH% 20.5 % (20.5-51.1); MCH 20.1 PG (27-31); MCHC 28.9 g/dL (33-37); MCV 69.8 FL (81-99); MONO# 0.35 X1000 (0.11-0.59); MONO% 5.8 % (1.7-9.3); MPV 8.6 FL (7.4-10.4); NEUT# 4.42 X1000 (1.4-6.5); PLT 484 X1000 (130-400); RBC 2.88 XMIL (4.2-5.4); RDW 23.3 % (11.5-14.5); WBC 6.05 X1000 (4.8-10.8)
[2019-07-31 15:55] LABS: HEMOGLOBIN 5.8 g/dL (12.0-16.0)
[2019-07-31 16:16] LABS: AGAP 9; ALB/GLOB RATIO 0.5; ALBUMIN 1.7 g/dL (3.5-5.0); ALKALINE PHOSPHATASE 70 U/L (32-104); BUN 14 mg/dL (8-22); CALCIUM 6.8 mg/dL (8.8-10.2); CHLORIDE 94 mmol/L (98-107); COSMO 260; CREATININE 0.3 mg/dL (0.5-0.9); ESTIMATED GFR > 60; GLUCOSE 108 mg/dL (70-104); GOT 16 U/L (10-30); GPT 25 U/L (10-36); MAGNESIUM 1.8 mg/dL (1.5-2.7); PHOSPHORUS 2.1 mg/dL (2.7-4.5); POTASSIUM 3.2 mmol/L (3.5-5.1); SODIUM 129 mmol/L (136-145); TCO2 26 mmol/L (25-35); TOTAL BILIRUBIN < 0.15 mg/dL (0.20-1.00); TOTAL PROTEIN 4.8 g/dL (6.3-8.3)
[2019-07-31] MEDS ORDERED: CALCIUM GLUCONATE 4.65 MEQ in NS 50 ML IV ONE (16:21)
[2019-07-31 16:42] LABS: BANDS 16 % (0-1); LYMPHS 24 % (21-51); MONO 2 % (1-9); SEGS 57 % (42-75)
[2019-07-31 16:43] LABS: ANISOCYTOSIS 2+; HYPOCHROM 2+; MICROCYTOSIS 1+
[2019-07-31] MEDS: NS 1,000 ML IV SCH (16:59)
[2019-07-31] MEDS: LIPOSYN 20% 500 ML IV SCH (16:59)
[2019-07-31] MEDS: FLINTSTONES COMPLETE PO SCH (17:24)
[2019-07-31] MEDS: NEUTRA-PHOS PO SCH ×2 (17:24→23:16)
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
[2019-07-31] MEDS: LEVAQUIN 500 MG/D5W 500 MG/100 ML IVPB IV SCH (18:08)
[2019-07-31] MEDS: ZOFRAN IV PRN (20:03)
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
[2019-08-01] MEDS: FLAGYL 500 MG/NS 500 MG/100 ML IVPB IV SCH ×4 (01:49→22:08)
[2019-08-01] MEDS: ATIVAN PO PRN (01:50)
[2019-08-01] MEDS: PERCOCET-5 PO PRN ×3 (01:50→18:47)
[2019-08-01] MEDS: POTASSIUM CHLORIDE 60 MEQ in NS 500 ML IV ONE ×2 (03:10→03:23)
[2019-08-01] MEDS ORDERED: DIPRIVAN 1% ONE (07:00)
[2019-08-01] MEDS ORDERED: FENTANYL ONE (07:01)
[2019-08-01 07:42] LABS: AGAP 7; BUN 8 mg/dL (8-22); CALCIUM 7.2 mg/dL (8.8-10.2); CHLORIDE 98 mmol/L (98-107); CHOLESTEROL 60 mg/dL (0-200); COSMO 259; CREATININE 0.4 mg/dL (0.5-0.9); ESTIMATED GFR > 60; GLUCOSE 96 mg/dL (70-104); GOT 16 U/L (10-30); MAGNESIUM 1.7 mg/dL (1.5-2.7); PHOSPHORUS 1.3 mg/dL (2.7-4.5); PREALBUMIN 7.6 mg/dL (20-40); SODIUM 130 mmol/L (136-145); TCO2 25 mmol/L (25-35); TRIGLYCERIDES 101 mg/dL (35-135)
--- NOTE | 2019-08-01 09:06 | ENDOSCOPY OPERATIVE NOTE ---
[facility] ENDOSCOPY OPERATIVE NOTE , PATIENT: Brandy Rubi ADMISSION DATE: 08/01/2019 MR#: [id number] : 1995 EGD PROCEDURE REPORT PROCEDURE DATE: 08/01/2019 SURGEON: Dieter Zelaya MD STATUS: inpatient DEPARTMENT EDITOR: PREOPERATIVE DIAGNOSIS: The patient is a 24 yr old female here for an EGD due to iron deficiency ane jessica and weight loss. PROCEDURE PERFORMED: EGD, diagnostic MEDICATIONS: Per Anesthesia TOPICAL ANESTHETIC: none CONSENT: The patient understands the risks and benefits of the procedure and understands that these r isks include, but are not limited to: sedation, allergic reaction, infection, perforation and/or bleeding. Alternative means of evaluation and treatment include, among others: physical exam, x-rays, and/or surgical intervention. The patient elects to proceed with this endoscopic procedure. HISORY AND PHYSICAL: 08/01/2019 DESCRIPTION OF PROCEDURE: During intra-op preparation period all mechanical and medical equipment was checked for proper function. Hand hygiene and appropriate measures for infection prevention was taken. After the risks, benefits and alternatives of the procedure were thoroughly explained, Informed consent was verified, confirmed and timeout was successfully executed by the treatment team. The patient was anesthetized with topical anesthesia and the IY02-[id number] ([id number]) endoscope was introduced through the mouth and advanced to the second portion of the duoden um. Retroflexion was performed in the stomach and revealed a hiatal hernia. The gastroscope was then slowly withdrawn and removed. ESOPHAGUS: A 1cm hiatal hernia was noted. STOMACH: There was a small amount of residual food. DUODENUM: The duodenum was normal. SPECIMENS REMOVED: No ADVERSE EVENTS: There were no complications. POSTOPERATIVE DIAGNOSIS: 1. 1cm hiatal hernia 2. Food residue 3. The duodenum was normal RECOMMENDATIONS: Continue to colonoscopy procedure REPEAT EXAM: Dieter Zelaya MD eSigned: Dieter Zelaya MD 08/01/2019 9:05 AM cc: PATIENT NAME: Brandy Rubi MR#: [id number]
--- NOTE | 2019-08-01 09:22 | ENDOSCOPY OPERATIVE NOTE ---
[facility] ENDOSCOPY OPERATIVE NOTE , PATIENT: Brandy Rubi ADM DATE: 08/01/2019 MR #: [id number] : 1995 COLONOSCOPY PROCEDURE REPORT PROCEDURE DATE: 08/01/2019 SURGEON: Dieter Zelaya MD STATUS: inpatient INFORMATION TECHNOLOGY ACCOUNT MANAGER: PREOPERATIVE DIAGNOSIS: The patient is a 24 yr old female here for a colonoscopy due to previously d iagnosed ileocolonic Crohn's disease, chronic diarrhea, iron deficiency anemia, and weight loss. PROCEDURE PERFORMED: Colonoscopy with biopsy MEDICATIONS: Per Anesthesia PREP TYPE: GoLytely
[2019-08-01] MEDS: FLINTSTONES COMPLETE PO SCH (10:22)
[2019-08-01] MEDS: NEUTRA-PHOS PO SCH ×2 (10:23→11:01)
[2019-08-01] MEDS: MIRALAX PO SCH ×2 (10:25→22:55)
[2019-08-01] MEDS: SOLU-MEDROL IV SCH (10:49)
[2019-08-01] MEDS: NS 1,000 ML IV SCH (12:06)
[2019-08-01] MEDS: MORPHINE IV PRN (14:36)
[2019-08-01] MEDS ORDERED: TPN ELECTROLYTES 20 ML, MAGNESIUM SULFATE 5 MEQ, POTASSIUM CHLORIDE 30 MEQ, M.V.I.-12 1... IV SCH ×8 (15:00)
[2019-08-01] MEDS: PROTONIX IV SCH (15:30)
[2019-08-01] MEDS: SODIUM CHLORIDE 0.9% INJ SCH (15:31)
[2019-08-01] MEDS: LIPOSYN 20% 500 ML IV SCH (16:36)
[2019-08-01] MEDS ORDERED: XANAX PO PRN (17:26)
[2019-08-01] MEDS ORDERED: SODIUM PHOSPHATE 40 MEQ in NS 250 ML IV ONE (17:27)
--- NOTE | 2019-08-01 18:19 | PROGRESS NOTE ---
DATE: 08/01/2019 SUBJECTIVE: The patient as no major complaints. She wants to go home. I think she is tolerating p.o. without too much difficulty. OBJECTIVE: Blood pressure is 146/79, heart rate of 83, respiratory rate of 20, temperature 97.7.Cardiovascular: Regular rate and rhythm. Pulmonary: Bilateral breath sounds, clear to auscultation. GI: Soft, nontender, nondistended. Bowel sounds are positive. LABORATORY DATA: I do not have a new CBC. Sodium is 130, phosphorus 1.3. PROBLEM LIST: 1. Severe protein-calorie malnutrition related to Crohn's and malabsorption. Plan is to continue total parenteral nutrition, and then I guess a feeding tube. She states a nasogastric tube, so we will place the nasogastric tube, which was ordered today (Dr. Long is putting that in), and then plan on tube feeds. If she tolerates those, then she should be able to go home, hopefully soon. She wants to go home but they are not quite sure she has a safe environment for that right now. 2. Crohn's exacerbation. She is on steroids. She is also on antibiotics, and we will continue to follow. DISPOSITION: Pending clinical status, would anticipate discharge, hopefully soon once we can get things situated with tube feeds at home. cc: Shayne Saenz MD
--- NOTE | 2019-08-01 18:58 | GENERAL SURGERY PROGRESS NOTE ---
DATE: 08/01/2019 SUBJECTIVE: The patient says she feels a little better with less pain. She is eating a little, but not a whole lot. OBJECTIVE: Vital Signs: She is afebrile. Vital signs are stable. General: She is emaciated but in no acute distress. GI: Soft, nondistended, mildly tender. LABORATORY: Electrolytes reviewed and stable. ASSESSMENT/PLAN: A 24-year-old female with failure to thrive, severe protein calorie malnutrition, Crohn disease, polysubstance abuse, noncompliance. Given the fact that her esophagogastroduodenoscopy showed a fairly normal-appearing stomach and duodenum, I propose that we start Dobhoff enteral feeds and try to build up her nutrition. I agree that she may ultimately need a large bowel internal ileal resection with end ileostomy, but currently she is in no shape to undergo a major operation. cc: Chin Long MD
[2019-08-01] MEDS: LEVAQUIN 500 MG/D5W 500 MG/100 ML IVPB IV SCH (22:08)
[2019-08-02] MEDS: FLAGYL 500 MG/NS 500 MG/100 ML IVPB IV SCH ×4 (03:58→21:57)
[2019-08-02 07:20] LABS: AGAP 11; BUN 6 mg/dL (8-22); CHLORIDE 96 mmol/L (98-107); COSMO 260; CREATININE 0.2 mg/dL (0.5-0.9); ESTIMATED GFR > 60; GLUCOSE 98 mg/dL (70-104); MAGNESIUM 1.6 mg/dL (1.5-2.7); POTASSIUM 3.6 mmol/L (3.5-5.1); SODIUM 131 mmol/L (136-145); TCO2 24 mmol/L (25-35)
[2019-08-02 07:46] LABS: CALCIUM 6.5 mg/dL (8.8-10.2)
[2019-08-02] MEDS: FLINTSTONES COMPLETE PO SCH (08:19)
[2019-08-02] MEDS: SOLU-MEDROL IV SCH (08:19)
[2019-08-02] MEDS: MIRALAX PO SCH ×2 (08:20→21:30)
--- NOTE | 2019-08-02 09:14 | GENERAL SURGERY PROGRESS NOTE ---
DATE: 08/01/2019 SUBJECTIVE: The patient refused NG tube placement last night. OBJECTIVE: She is afebrile. Vital signs are stable. General she is awake and alert. No acute distress. GI soft nondistended. LABORATORY: Electrolytes reviewed and are stable. Albumin is 1.7. ASSESSMENT/PLAN: 24-year-old female with severe protein calorie malnutrition, Crohn's disease, noncompliance. I encouraged the patient to have the NG tube placed today to that she could get better nutrition. Further considerations include TPN if she cannot tolerate enteral nutrition. She may ultimately need a total colectomy and partial small bowel obstruction due to the refractory Crohn's disease although I suspect she has not been compliant with her Crohn's medications in the past. I am concerned that she is not going to get adequate nutritional assistance at home or at a "rehab" facility. I think consideration should be given to a transfer of care to [facility] for gastroenterology nutrition, colorectal surgery and intensive care/bank advisor collaboration. Colectomy at this time I think is very risky given her poor nutrition. Her ability to heal from surgery is very compromised. If she were discharged home instead, then I think we need to identify a physician who will manage her nutritional needs intensely for the next few months indication. cc: Chin Long MD
--- NOTE | 2019-08-02 11:02 | GASTROENTEROLOGY PROGRESS NOTE ---
DATE: 08/02/2019 SUBJECTIVE: Ms. Rubi was resting in bed. Family at the bedside. She has denied any nausea, vomiting. She did mention having 3 bowel movements which were soft and liquid in consistency. as per family patient is eating extremely well. OBJECTIVE: Vital signs: Temperature 98.3 degrees, pulse 81, respirations 18, blood pressure 166/90, oxygen saturation 100% on room air. Her weight is 67 pounds, BMI 12.3 kg per meter square. General: She is alert, oriented x3, in no acute distress, severe cachexia. HEENT: Pale conjunctivae. Sunken eye bones, pale conjunctivae, No icterus. Neck: Supple. Lungs: Clear to auscultation in the anterior wells. Cardiovascular: Regular rate and rhythm. Abdomen: Soft, nontender, nondistended. Active bowel sounds heard in all 4 quadrants. Extremities: No cyanosis, clubbing, edema. 2+ pedal pulses present bilaterally. Neurological: Alert and oriented x3. LABORATORY DATA: Her CBC are from 07/31/2019, WBC 6.05, RBC 2.88, hemoglobin 5.8, hematocrit 20.1, platelet count is 484,000. Chemistry on 08/02/2019, sodium is 131, potassium 3.6, chloride is 96, carbon dioxide 24, anion gap is 11, BUN is 6, creatinine is 0.2, calcium is 6.5. Phosphorus is 3.0, magnesium is 1.6. Her albumin is 1.7. IMPRESSIONS AND PLAN: 1. Malnutrition. 2. Anemia. 3. Crohn's disease. 4. Abdominal pain. 5. Cachexia. 6. Acid reflux. 7. Bipolar disorder. 8. Post traumatic stress disorder. 9. Iron deficiency anemia. 10. Drug abuse 11. Smoker PLAN:An EGD and flexible sigmoidoscopy was done yesterday, findings were multiple well demarcated cratered ulcers and pseudopolyps found in the keely- terminal ileum consistent with Crohn's disease, esophagus had a hiatal hernia. Stomach had small amount of residual food. Duodenum was normal. Colon biopsies to r/o CMV are pending. The plan is to transfer patient to [facility] for further workup and treatment for her Crohn's disease which is worsening as well as patient is severely malnourished. Patient is on TPN for her nutrition and on Solu-Medrol for her Crohn's. We will continue to monitor her CBC and BMP, and follow the plan of care per PCP. This plan was discussed with Dr. Zelaya. Please call us for further questions or concerns. Dictated by OH Boggs for Dieter Zelaya MD Physician Attestation I have seen and examined the patient. I have discussed and reviewed the the note by Mercedes CASIANO and agree with findings and plan as documented. In brief, Ms. Brandy Rubi is a 24 year old woman with history of polysubstance abuse, medication non-compliance, SURAJ, severe cachexia from ileocolonic Crohn's. EGD and colonoscopy yesterday revealed severe ileocolitis involving the keely- terminal ileum and entire colon. Biopsies were obtained of the ulcers in the TI and colon to rule out CMV. Biopsies pending. She was started on solumedrol yesterday. She has failed remicade and Humira and is critically malnourished. She is on abx and TPN. I agree with surgical team that patient should be transferred to [facility] for further treatment of her malnutrition and consideration for alternative therapies for her Crohn's including (Chapo Martinez) surgical evaluation by colorectal surgeon for probable partial SB resection and colectomy with end-ileostomy. Stopped PPI and miralax in setting of diarrhea. Repeat lytes prn. Check CBC and CMP. Transfuse for hgb goal 7-8. Surgery and nutrition following; appreciate recs Will follow with you. Please call with questions. MTDD
[2019-08-02] MEDS ORDERED: XANAX PO PRN (11:57)
--- NOTE | 2019-08-02 15:04 | PROGRESS NOTE ---
DATE: 08/02/2019 SUBJECTIVE: She had agreed to the feeding tube. Then she refused. OBJECTIVE: Blood pressure is 167/89, heart rate is 69, respirations 17, temperature 98.5 degrees. She is a thin female. No acute distress. Head Examination: Normocephalic, atraumatic. Laboratory Data: Her sodium is 131, her calcium is 6.5, her albumin is 1.7. PROBLEM LIST: 1. Severe protein-calorie malnutrition that was critical even. Her body mass index is 12. She has profound cachexia. Dr. Long and Dr. Zelaya feel that she is not absorbing so a feeding tube may not be helpful. The total parenteral nutrition does seem to be improving but she needs nutritional support for a while before we can do anything else. He has recommended considering a transfer to [facility] or a tertiary level facility and she is willing to go. Her family is on board as well. I did discuss the case with [facility] but they were on diversion. I did discuss the case with the medical attending and did not have much else to offer while they were on diversion, which felt like they were on diversion for the last several weeks. 2. Crohn's exacerbation, acute. She has severe Crohn's. Per Dr. Zelaya, just really terrible Crohn's. She has failed Remicade in the past. He is strongly considering colectomy. However, she is not a good candidate with her level of protein malnutrition so we will continue nutritional support, antibiotics, and follow. 3. Disposition. Pending her clinical status. 4. Refeeding syndrome. We will monitor her potassium, magnesium, calcium, phosphorus. She is also folate deficiency so we will work on trying to get that worked out. cc: Shayne Saenz MD
[2019-08-02] MEDS: FOLIC ACID 1 MG in NS 50 ML IV SCH (15:51)
[2019-08-02] MEDS: TPN ELECTROLYTES 20 ML, MAGNESIUM SULFATE 5 MEQ, POTASSIUM CHLORIDE 30 MEQ, SODIUM PHOS... IV SCH ×6 (15:52)
[2019-08-02] MEDS: LIPOSYN 20% 500 ML IV SCH (15:52)
[2019-08-02] MEDS: PROTONIX IV SCH (15:53)
[2019-08-02] MEDS: SODIUM CHLORIDE 0.9% INJ SCH (15:53)
--- NOTE | 2019-08-02 19:37 | PROGRESS NOTE ---
DATE: 08/02/2019 I contacted both [facility], spoke to Gastroenterology there, and Dr. Alfredo with the [facility], Leroy Alfredo, I think a colorectal surgeon. [facility] is on diversion, but speaking to the painter and decorator apprentice, they did not feel like they had much else to offer except for a phone consultation with Psychiatry, which we will pursue if we cannot get a local psychiatrist to help us with this patient. Dr. Alfredo said his plan, which had been established because I think they did try to admit her to [facility] 3 weeks ago and the patient left A then after a 5-hour wait for a bed or something to that effect. He wants her to be on TPN for at least a month commitment to IV nutrition and then will consider elective or semielective colectomy at that point, but he did not feel that she needed any further treatment in [place] or transfer at this time, so I will defer to Dr. Zelaya and Dr. Long if they want to discuss with him about other options. We will at this time set up home IV TPN and go from there. cc: Shayne Saenz MD
[2019-08-02] MEDS: ZOFRAN IV PRN (20:53)
[2019-08-02] MEDS: LEVAQUIN 500 MG/D5W 500 MG/100 ML IVPB IV SCH (20:53)
[2019-08-02] MEDS ORDERED: ZYPREXA ZYDIS PO SCH (21:00)
[2019-08-02] MEDS ORDERED: REMERON PO SCH (21:00)
[2019-08-02 21:44] LABS: URINE SOURCE CATH
[2019-08-02 21:58] LABS: TISSUE TRANSGLUTAMINASE IGA SEE COMMENTS
[2019-08-02 22:04] LABS: BILIRUBIN URINE NEGATIVE (NEGATIVE); BLOOD URINE NEGATIVE (NEGATIVE); COLOR YELLOW; GLUCOSE URINE 300 mg/dL (NEGATIVE); KETONE URINE NEGATIVE (NEGATIVE); LEUKOCYTES URINE NEGATIVE (NEGATIVE); NITRITE URINE NEGATIVE (NEGATIVE); PH URINE 6.5; PROTEIN URINE NEGATIVE (NEGATIVE); SP GRAVITY URINE 1.011; TURBIDITY URINE CLEAR (CLEAR); UROBILINOGEN URINE NORMAL (NORMAL)
[2019-08-02 22:05] LABS: UR EPITHELIAL CELLS <10 /HPF (<10); URINE BACTERIA NEGATIVE /HPF; URINE RBC <10 /HPF (<10); URINE WBC <10 /HPF (<10)
[2019-08-03] MEDS: FLAGYL 500 MG/NS 500 MG/100 ML IVPB IV SCH ×2 (03:33→10:42)
[2019-08-03 07:12] LABS: BASO# 0.01 X1000 (0.0-0.2); BASO% 0.1 % (0.0-0.8); HEMATOCRIT 33.6 % (37.0-47.0); HEMOGLOBIN 11.2 g/dL (12.0-16.0); IMM GRAN# 0.04 X1000 (0.0-0.04); IMM GRAN% 0.4 % (0.0-0.5); LYMPH# 1.48 X1000 (1.2-3.4); LYMPH% 16.5 % (20.5-51.1); MCH 24.2 PG (27-31); MCHC 33.3 g/dL (33-37); MCV 72.7 FL (81-99); MONO# 0.91 X1000 (0.11-0.59); MONO% 10.1 % (1.7-9.3); MPV 8.8 FL (7.4-10.4); NEUT# 6.53 X1000 (1.4-6.5); NEUT% 72.9 % (42.2-75.2); PLT 425 X1000 (130-400); RBC 4.62 XMIL (4.2-5.4); RDW 24.7 % (11.5-14.5); WBC 8.97 X1000 (4.8-10.8)
[2019-08-03] MEDS: SOLU-MEDROL IV SCH (08:39)
[2019-08-03] MEDS: ATIVAN IV PRN ×2 (08:52→13:36)
[2019-08-03 09:15] LABS: AGAP 10; BUN 6 mg/dL (8-22); CALCIUM 7.8 mg/dL (8.8-10.2); CHLORIDE 97 mmol/L (98-107); COSMO 261; CREATININE 0.2 mg/dL (0.5-0.9); ESTIMATED GFR > 60; GLUCOSE 109 mg/dL (70-104); MAGNESIUM 1.6 mg/dL (1.5-2.7); PHOSPHORUS 2.1 mg/dL (2.7-4.5); POTASSIUM 3.3 mmol/L (3.5-5.1); SODIUM 131 mmol/L (136-145); TCO2 24 mmol/L (25-35)
[2019-08-03] MEDS ORDERED: NS IV ONE (09:17)
[2019-08-03] MEDS ORDERED: CEREBYX IV ONE (09:17)
[2019-08-03] MEDS: FLINTSTONES COMPLETE PO SCH (10:01)
[2019-08-03] MEDS ORDERED: POTASSIUM PHOSPHATE 40 MEQ in NS 250 ML IV ONE (10:38)
[2019-08-03] MEDS ORDERED: NS 500 ML IV ONE (10:53)
[2019-08-03] MEDS ORDERED: THIAMINE 100 MG in NS 50 ML IV SCH (11:00)
[2019-08-03] MEDS ORDERED: POTASSIUM CHLORIDE 20 MEQ/SWI 20 MEQ/100 ML IVPB IV SCH (11:00)
[2019-08-03] MEDS: ZOSYN 3.375 GM in NS 50 ML IV SCH ×2 (11:01→17:02)
[2019-08-03] MEDS: LOPRESSOR IV SCH ×2 (11:01→17:02)
[2019-08-03] MEDS: FOLIC ACID 1 MG in NS 50 ML IV SCH (12:10)
--- NOTE | 2019-08-03 12:51 | EKG Report ---
Test Performed on : 08/03/2019 11:42:49 AM Test Reason : tachycardia Blood Pressure : / mmHG Vent. Rate : 122 BPM Atrial Rate : 122 BPM P-R Int : 134 ms QRS Dur : 074 ms QT Int : 318 ms P-R-T Axes : 087 083 095 degrees QTc Int : 453 ms Sinus tachycardia. Septal infarct , age undetermined Abnormal ECG When compared with ECG of 21-JUL-2019 08:16, (Unconfirmed) T wave inversion no longer evident in Inferior leads T wave inversion no longer evident in Lateral leads Confirmed by Wesley Albright MD ([id number]) on 08/03/2019 5:33:26 PM
[2019-08-03] MEDS: MORPHINE IV PRN ×2 (13:13→17:24)
--- NOTE | 2019-08-03 13:25 | PROGRESS NOTE ---
DATE: 08/03/2019 SUBJECTIVE: Patient has no major complaints. OBJECTIVE: Vital Signs: Blood pressure 145/115, heart rate 118, respiratory rate 21, temperature 99.4 degrees, and oxygen saturation is 100% on room air. Cardiovascular: Regular rate and rhythm. Pulmonary: Bilateral breath sounds clear to auscultation. Gastrointestinal: Soft, nontender, nondistended. Bowel sounds are positive. She is still very cachectic. LABORATORY DATA: White count is 8, hemoglobin and hematocrit of 11 and 33, platelets 425,000. Sodium 131, potassium 3.3, phosphorus of 2.1, albumin of 2. Her celiac IgA cascade is positive at 809. PROBLEM LIST: 1. Seizure disorder. She has had at least 2 witnessed episodes. She had 1 unwitnessed. She has no history of seizures, but she is transferred to the ICU for management. She is awake now, still lethargic, but nonfocal exam. I am not sure if this is part of her refeeding. She has also been on levofloxacin, which has been stopped. Unfortunately, I do not have neurology coverage and cannot get an EEG interpreted at this time, so we are looking at trying to get her transferred to [place] for neurology evaluation amongst many other issues. 2. Severe protein-calorie malnutrition. She is on TPN. We are going to monitor her electrolytes closely for refeeding. Potassium and phosphate are low, although her phosphorus is higher than it has been previously, but we will continue to supplement. 3. Severe Crohn's exacerbation. We have stopped Levaquin and Flagyl and switched her to Zosyn, and we will monitor her closely. She is on IV steroids. Gastroenterology is following and recommend likely colectomy once she is stabilized. No further issues at this time. DISPOSITION: 1. Obviously she is going to need further care than we can manage here, especially neurological, so we will try to pursue. I did pursue [facility] yesterday, and they are on diversion. 2. Additionally, bipolar disorder, depression. She needs psychiatric evaluation. I think it is interfering with her decision-making, and she may even have a Wernicke's type encephalopathy. We will check thiamine levels and start supplementation as well. cc: Shayne Saenz MD
--- NOTE | 2019-08-03 15:25 | Diag Imaging Result Doc PS360 ---
EXAM: CT HEAD W/O CONTRAST INDICATION: encephalopathy TECHNIQUE: This exam was performed using automated exposure control, adjustment of mA or kV according to patient size, and/or use of iterative reconstruction technique. COMPARISON: 11/07/2017 FINDINGS: There is no definite acute infarct given the limited sensitivity of CT versus MRI. There is no discrete intracranial mass, mass effect, or intracranial hemorrhage. The surrounding soft tissues and bony structures are essentially unremarkable. IMPRESSION: No evidence of acute intracranial pathology. Electronically signed by Tuan Meza 08/03/2019 3:23 PM
[2019-08-03] MEDS ORDERED: POTASSIUM CHLORIDE IV SCH ×8 (15:45)
[2019-08-03] MEDS ORDERED: LIPOSYN 20% 250 ML IV SCH (15:45)
[2019-08-03] MEDS ORDERED: [UNRECOGNIZED DRUG - OTHER] IV SCH ×8 (15:45)
[2019-08-03] MEDS ORDERED: TPN ELECTROLYTES IV SCH ×8 (15:45)
[2019-08-03] MEDS ORDERED: MAGNESIUM SULFATE IV SCH ×8 (15:45)
[2019-08-03] MEDS: LIPOSYN 20% 500 ML IV SCH (17:03)
[2019-08-03] MEDS: TPN ELECTROLYTES 20 ML, MAGNESIUM SULFATE 5 MEQ, POTASSIUM CHLORIDE 30 MEQ, SODIUM PHOS... IV SCH ×6 (17:03)
[2019-08-03 17:10] VITALS: BP 105/81
--- NOTE | 2019-08-03 18:45 | GENERAL SURGERY PROGRESS NOTE ---
DATE: 08/03/2019 SUBJECTIVE: The patient reportedly has had several seizures in the last 24 hours. Currently, she complains of some pain around her mouth, and admits to some abdominal pain. Her family reports that she has been eating reasonably well with a good appetite here in the hospital. OBJECTIVE: She is afebrile. Pulse 80s to 130, blood pressure 137/114, O2 saturation 100%, and respiratory rate 21.General: An emaciated female who is awake and alert, somewhat slow to respond in no acute distress. CV: Tachycardic. Respiratory: No increased work of breathing. GI: Soft. Nondistended. Mild diffuse tenderness. No rebound or guarding. Extremities: Shows severe muscle wasting. LABORATORY: White blood cell count 8.9, hemoglobin 11, hematocrit 33, and platelet count 425,000. Electrolytes reviewed and are stable. IMAGING: None today. ASSESSMENT/PLAN: A 24-year-old female with severe protein calorie malnutrition, severe Crohn's disease, and reported new seizures. 1. History of polysubstance abuse and noncompliance. According to Dr. Saenz, [facility] and [facility] will not accept her. Dr. Alfredo had planned IV nutrition for at least a month prior to any elective or semi elective surgery to remove the diseased bowel. I would wholeheartedly agree with this. It is becoming more apparent that she can eat, but is not going to be able to absorb much of the nutrition, and her consistent oral intake will be limited due to flare-ups of the Crohn's causing pain. Therefore, I think we are resigned to TPN allowing her to eat for comfort, and this needs to go on for some time until she can gain some weight and build up her nutritional status. She is very weak and deconditioned. We will consult physical therapy. I think we need to get a neurologist's consultation given the new seizures, and we need psychiatry's opinion on her mental status, and whether she needs to be on any treatment and follow up. I am very concerned about her going home in this state, and would strongly recommend transfer to either LTAC or a residential facility for continued IV nutrition, physical therapy, and nursing care. She is a high risk for decubitus ulcers as well as I will continue to follow along. cc: Chin Long MD
--- NOTE | 2019-08-03 19:26 | GASTROENTEROLOGY PROGRESS NOTE ---
DATE: 08/03/2019 SUBJECTIVE: Ms. Rubi 24 year old female resting in bed. She was refusing to speak. Family at the bedside. Patient had a seizure this morning, she is in the ICU and yesterday she had 3 to 4 seizures when she was on 4th floor. Spoke to the patient's Nurse and Dr Saenz. OBJECTIVE: Vital Signs: Temperature 99.4 degrees, pulse 118, respirations 21, blood pressure is 145/115, oxygen saturation 100% on room air. Her weight is 66 pounds. BMI is 12.1 kg/m2. General: She is alert and oriented x1, and in no acute distress, but is refusing to speak. HEENT: Pale conjunctivae. No icterus. PERRL. Neck: Supple. Lungs: Clear to auscultation in anterior wells. Cardiovascular: Regular rate and rhythm. Abdomen: Soft, nontender, and nondistended. Active bowel sounds heard in all 4 quadrants. Extremities: No clubbing, cyanosis, or edema. Pedal pulses 2+ and present. Neurologic: Non verbal at this time. LABORATORY: Last WBC was 8.497, RBC 4.62, hemoglobin 11.2, hematocrit is 33.3, and platelet count is 425,000. Chemistry: Sodium 131, potassium 3.3, chloride 97, carbon dioxide 24, anion gap 10, BUN 6, creatinine 0.2, glucose 109, calcium 7.8, phosphorus 2.1, magnesium 1.6, and albumin 2.1. Urinalysis showed glucose 300. The rest of the urinalysis is negative. Tissue trans glutamine A/B is less than 1.2. Celiac serologies cascade IgA is 809. IMPRESSION AND PLAN: New onset of seizures and change in mental status Malnutrition Anemia Crohn's disease Abdominal pain Cachexia Acid reflux Bipolar disorder Iron deficiency Anemia Drug abuse Smoker PLAN: The patient has severe malnutrition, we will continue her with the TPN. She is on antibiotics of Zosyn. Patient is receiving thiamine, potassium, folic acid IV, antibiotics, Solu-Medrol 60 mg IV and chewable multivitamin daily. The patient has been started on Remeron for bipolar disorder per PCP. We will continue to monitor the patient's CBC, BMP, electrolytes and continue to follow the plan of care per primary care provider. The plan is to send the patient to [facility] for further treatment of seizures, cachexia, malnutrition and consideration for other alternative therapies for severe Crohn's disease. This plan was discussed with Dr. Benavides. Please call us with any further questions or concerns. Dictated by OH Boggs for Emery Benavides MD cc: Emery Benavides MD I spoke to Dr Saenz and he will try to transfer the patient to tertiary care center. I have seen and examined the patient myself and I agree with the above plan of care. I have discussed the above plan of care with the patient's Nurse at bedside and all questions were answered. Please call us with any further questions or concerns MTDD
--- NOTE | 2019-09-01 10:41 | DISCHARGE SUMMARY ---
ADMISSION DATE: 07/30/2019 DISCHARGE DATE: 08/03/2019 DISCHARGE DIAGNOSES: 1. Seizure disorder. 2. Severe protein-calorie malnutrition. 3. Severe Crohn exacerbation. 4. Chronic cachexia. 5. History of depression versus bipolar disorder, which was untreated. She was transferred to [facility]. CONSULTATIONS: 1. Dr. Zelaya, Gastroenterology. 2. Dr. Long, General Surgery. PROCEDURES: 1. Endoscopy 08/[address] Zelaya. EGD, which showed residual food, but really was unremarkable, and colonoscopy showed multiple well-demarcated crater ulcers and pseudopolyps consistent with Crohn. Pathology confirmed active colitis in the small and large intestine. So, ileum and colon with granulation tissue. HOSPITAL COURSE: Briefly, this is a very unfortunate 24-year-old female with severe cachexia, who has left [facility] multiple times despite really not being able to get up and around. She has severe Crohn disease, iron deficiency anemia and probably clinically just the worst protein calorie malnutrition related to poor p.o. intake and probably severe malabsorption. We had attempted multiple times to get her to stay a bit, but she has signed out AMA. She was admitted for treatment. GI was consulted. PICC line was placed for TPN. The patient did exhibit refeeding syndrome. She underwent colonoscopy and EGD as described, showing severe per Dr. Zelaya, Crohn. She was maintained on TPN. Initially, I think they were going to look at putting a Dobbhoff tube in, but I do not think that ended up happening immediately or she took it out. There was discussion that she needed a total colectomy because of her severe Crohn, and initially tried to transfer her to [facility], but I do not think beds were available. She was maintained on TPN. She was maintained on steroids. She did have some improvement. I did discuss the case with Dr. Alfredo because she had been seen by him and was supposed to be admitted there directly, but she left [facility] that time as well, and he did not feel that she needed to be transferred. There was some seizure activity noted, which ended up getting her transferred to the ICU. Not really clear why that happened, although refeeding syndrome was at the top of the list. We did discuss with GI in [place] and she ended up being transferred to the hospitalist service there. Further management per their recommendations. TRANSFER TIME: 35 minute discharge time for transfer. cc: MD Shayne Gregory MD Dr. Thomas
== END 2019-08-03 17:35 | disposition short-term general hospital (02) | DRG 385 ==
LOC: SUPCPDRO → ED 11:14 → 4N 14:52 → SUATTDRO 14:52 → 4N 15:18 → ICU 08-02 20:48
PROVIDERS: ATTEND Internal Medicine